=== PATIENT | female | born 1990 | race Caucasian/White ===

== ENCOUNTER 2020-07-19 10:55 | Inpatient (IN) | payer BC ==
[~2020-07-19] VITALS: Ht 165.1 cm; Wt 79.4 kg
[2020-07-19] MEDS ORDERED: CITRIC ACID/SODIUM CITRATE 30 ML UDC PO SCH (11:15)
[2020-07-19 11:34] LABS: BASOPHILS % (AUTO) 0.3 % (0.0-2.0); EOSINOPHILS # (AUTO) 0.1 K/uL (0-0.4); EOSINOPHILS % (AUTO) 0.7 % (0.0-4.0); HEMATOCRIT 37.5 % (36-48); HEMOGLOBIN 12.9 g/dL (12.0-16.0); LYMPHOCYTES # (AUTO) 2.6 K/uL (2.5-16.5); LYMPHOCYTES % (AUTO) 20.5 % (20.5-51.1); MEAN CORPUSCULAR HEMOGLOBIN 31 pg (27-31); MEAN CORPUSCULAR HGB CONC 34 g/dL (33-37); MEAN CORPUSCULAR VOLUME 90.3 fL (80-94); MONOCYTES # (AUTO) 0.9 K/uL (0.8-1.0); MONOCYTES % (AUTO) 7.3 % (1.7-9.3); NEUTROPHILS # (AUTO) 8.9 K/uL (1.8-7.7); NEUTROPHILS % (AUTO) 71.2 % (42.2-75.2); PLATELET COUNT (AUTO) 243 K/uL (140-450); RED BLOOD CELL COUNT(AUTO) 4.15 MIL/uL (4.20-5.40); RED CELL DISTRIBUTION WIDTH 12.9 % (11.6-13.7); WHITE BLOOD COUNT (AUTO) 12.6 K/uL (4.8-10.8)
[2020-07-19 11:36] LABS: APPEARANCE,URINE SL CLOUDY (CLEAR); BILIRUBIN,URINE NEGATIVE (NEGATIVE); BLOOD, URINE NEGATIVE (NEGATIVE); COLOR,URINE YELLOW (YELLOW); LEUKOCYTE ESTERASE ,URINE 1+ (NEGATIVE); NITRITE, URINE NEGATIVE (NEGATIVE); PH,URINE 6.5 (5.0-9.0); UGLUCOSE NEGATIVE (NEGATIVE)
[2020-07-19] MEDS: LACTATED RINGERS 1,000 ML IV SCH ×2 (11:48→13:04)
[2020-07-19 11:49] LABS: RBC,URINE 0-5 /HPF (0-5); WBC,URINE 0-5 /HPF (0-5)
[2020-07-19 11:51] LABS: ALBUMIN 2.7 g/dL (3.4-5.0); ANION GAP 13.8 (8-16); CREATININE 0.6 mg/dL (0.6-1.3); POTASSIUM 3.8 mmol/L (3.5-5.1); TOTAL BILIRUBIN 0.3 mg/dL (0.0-1.0)
[2020-07-19] MEDS ORDERED: PNV91TAB10 PO (12:26)
[2020-07-19] MEDS ORDERED: METHYLERGONOVINE 0.2 MG/ML AMP IM PRN (13:40)
[2020-07-19] MEDS ORDERED: TEMAZEPAM 15 MG CAP PO PRN (13:40)
[2020-07-19] MEDS ORDERED: IBUPROFEN 800 MG TAB PO PRN (13:40)
[2020-07-19] MEDS ORDERED: MEASLES, MUMPS, AND RUBELLA 1 VIAL SQVAC PRN (13:40)
[2020-07-19] MEDS ORDERED: KETOROLAC 30 MG/ML VIAL IVP PRN (13:40)
[2020-07-19] MEDS ORDERED: MORPHINE PRES FREE 10 MG/10 ML AMP IV ONE (13:46)
[2020-07-19] MEDS ORDERED: METOCLOPRAMIDE 10 MG/2 ML INJ VIAL ONE (13:55)
[2020-07-19] MEDS ORDERED: ONDANSETRON 4 MG/2 ML VIAL ONE (13:55)
[2020-07-19] MEDS ORDERED: ePHEDrine 50 MG/ML VIAL ONE (13:55)
[2020-07-19] MEDS ORDERED: DEXAMETHASONE 4 MG/ML VIAL ONE (13:55)
[2020-07-19] MEDS ORDERED: MEPERIDINE 25 MG/ML SYR IVP PRN (14:40)
[2020-07-19] MEDS ORDERED: OXYTOCIN 20 UNITS in LACTATED RINGERS 1,000 ML IV SCH (14:40)
[2020-07-19] MEDS ORDERED: NALBUPHINE 10 MG/ML AMP IVP PRN (14:40)
[2020-07-19] MEDS ORDERED: diphenhydrAMINE 50 MG/ML VIAL IVP PRN (14:40)
[2020-07-19] MEDS ORDERED: HYDROmorphone 1 MG/ML AMP IVP PRN (14:40)
[2020-07-19] MEDS ORDERED: ONDANSETRON 4 MG/2 ML VIAL IVP PRN ×2 (14:40)
[2020-07-19] MEDS ORDERED: NALOXONE 0.4 MG/ML VIAL IVP PRN ×3 (14:40)
[2020-07-19] MEDS ORDERED: OXYTOCIN 20 UNITS/LR PREMIX 1,000 ML IV ONE ×2 (15:18→22:25)
[2020-07-19] MEDS: KETOROLAC 30 MG/ML VIAL IM/IVP SCH ×2 (17:56→23:56)
[2020-07-19] MEDS: diphenhydrAMINE 50 MG/ML VIAL IVP PRN (20:56)
[2020-07-19] MEDS: DOCUSATE SOD/SENNA 50/8.6 MG 1 TAB PO SCH (21:00)
[2020-07-19] MEDS: OXYTOCIN 20 UNITS in LACTATED RINGERS 1,000 ML IV SCH (22:42)
[2020-07-20] MEDS: diphenhydrAMINE 50 MG/ML VIAL IVP PRN (02:56)
[2020-07-20 05:33] LABS: HEMATOCRIT 32.4 % (36-48); HEMOGLOBIN 11.1 g/dL (12.0-16.0); LYMPHOCYTES # (AUTO) 2.3 K/uL (2.5-16.5); LYMPHOCYTES % (AUTO) 13.6 % (20.5-51.1); MEAN CORPUSCULAR HEMOGLOBIN 31 pg (27-31); MEAN CORPUSCULAR HGB CONC 34 g/dL (33-37); MEAN CORPUSCULAR VOLUME 91.4 fL (80-94); MONOCYTES # (AUTO) 1.4 K/uL (0.8-1.0); MONOCYTES % (AUTO) 8.4 % (1.7-9.3); NEUTROPHILS # (AUTO) 13.3 K/uL (1.8-7.7); PLATELET COUNT (AUTO) 233 K/uL (140-450); RED BLOOD CELL COUNT(AUTO) 3.55 MIL/uL (4.20-5.40); RED CELL DISTRIBUTION WIDTH 12.5 % (11.6-13.7)
[2020-07-20] MEDS: KETOROLAC 30 MG/ML VIAL IM/IVP SCH (06:11)
[2020-07-20] MEDS ORDERED: OXYTOCIN 20 UNITS/LR PREMIX 1,000 ML IV ONE (06:37)
[2020-07-20] MEDS: OXYTOCIN 20 UNITS in LACTATED RINGERS 1,000 ML IV SCH (06:46)
[2020-07-20] MEDS ORDERED: oxyCODONE/APAP 5/325 MG 1 TAB TAB PO PRN (07:00)
--- NOTE | 2020-07-20 08:28 | NUR ---
PATIENT HAS BEEN SCREENED AND CATEGORIZED LOW NUTRITION RISK. PATIENT WILL BE SEEN WITHIN 7 DAYS OF ADMISSION. 07/25/[address]
[2020-07-20] MEDS: SIMETHICONE 80 MG TAB.CHEW PO PRN ×2 (09:47→18:24)
[2020-07-20] MEDS: oxyCODONE/APAP 5/325 MG 1 TAB TAB PO PRN (15:52)
[2020-07-20] MEDS ORDERED: CAMERA MC ONE (19:23)
[2020-07-20] MEDS: DOCUSATE SOD/SENNA 50/8.6 MG 1 TAB PO SCH (21:23)
[2020-07-21] MEDS: oxyCODONE/APAP 5/325 MG 1 TAB TAB PO PRN (01:26)
[2020-07-21] MEDS ORDERED: FERR325E14 PO (10:15)
[2020-07-21] MEDS ORDERED: IBUP-2213 PO (10:16)
[2020-07-21] MEDS ORDERED: ACET-5629 PO (10:17)
== END 2020-07-21 14:10 | disposition home or self-care (01) | DRG 788 ==
LOC: MLD 10:55 → OBSVTOIN 11:13 → MFCC 15:00
PROVIDERS: ADMIT Obstetrics & Gynecology; ATTEND Obstetrics & Gynecology
PROC: 3E0134Z Introduction of Serum, Toxoid and Vaccine into Subcutaneous Tissue, Percutaneous Approach (ICD-10-PCS; 2020-07-19)
PROC: 10D00Z1 Extraction of Products of Conception, Low, Open Approach (ICD-10-PCS; principal; 2020-07-19 13:30)
DX: O34.211 Maternal care for low transverse scar from previous cesarean delivery (principal); Z20.822 Contact with and (suspected) exposure to COVID-19; Z37.0 Single live birth; Z3A.37 37 weeks gestation of pregnancy; Z23 Encounter for immunization
CPT/HCPCS: 36415; 80053; 81001; 85025; 86592; 86886; 86900; 86901; 87086; G0378; J0690; J1100; J1200; J1885; J2270; J2405; J2590; J2765; J7060; J7120